=== PATIENT | male | born 1950 | race Caucasian/White ===

== ENCOUNTER → 2019-09-26 | Outpatient (CLI) | payer MEDICARE, OTHER ==
[~2019-09-26] MED LIST: CIPROFLOXACIN500 M1; FLAGYL500 MG; HYDROCODONE-AP1 EAC6 PO; IBUPROFEN 800800 M1 PO; MOBIC15 MG; PROTONIX40 M2; ROBAXIN 750 MG750 M1 PO; ZOCOR20 MG PO
== END ==
LOC: M.LAB 07:21
PROVIDERS: ATTEND Internal Medicine Gastroenterology
DX: Z01.818 Encounter for other preprocedural examination (principal); Z11.59 Encounter for screening for other viral diseases

== ENCOUNTER → 2019-10-02 | Outpatient (CLI) | payer MEDICARE, OTHER | LOC: M.RAD 09:51 | PROVIDERS: ATTEND Internal Medicine Gastroenterology | DX: Z01.812 Encounter for preprocedural laboratory examination (principal); Z20.828 Contact with and (suspected) exposure to other viral communicable diseases; Z86.010 Personal history of colon polyps ==

== ENCOUNTER 2021-02-16 14:24 | Emergency (ER) | payer MEDICARE, OTHER ==
[~2021-02-16] VITALS: Ht 185.4 cm; Wt 101.6 kg
[2021-02-16 17:04] LABS: MCH 26.9 pg (26.0-34.0); MPV 7.6 fl. (7.2-11.1); RBC 5.92 mil/uL (4.50-6.00)
[2021-02-16 17:05] LABS: HEMATOCRIT 47.9 % (42.0-52.0); MCHC 33.3 g/dL (28.0-37.0); MCV 80.9 fL (80.0-100.0); NUCLEATED RBCS 0 /100WBC; PLATELET COUNT* 207 thou/uL (150-400); WBC 11.6 thou/uL (4.0-11.0)
[2021-02-16 17:11] LABS: INFLUENZA A ANTIGEN Negative (Negative); INFLUENZA B ANTIGEN Negative (Negative)
[2021-02-16 17:11] LABS: CALCIUM 8.5 mg/dL (8.5-10.1); CREATININE 1.3 mg/dL (0.6-1.3); POTASSIUM 4.2 mmol/L (3.5-5.1)
[2021-02-16 17:16] LABS: ALBUMIN 3.3 g/dL (3.4-5.0); TOTAL BILIRUBIN 0.4 mg/dL (<0.1-1.0); TOTAL PROTEIN 7.1 g/dL (6.4-8.2)
[2021-02-16 17:42] LABS: ABSOLUTE LYMPHOCYTES 0.5 thou/uL (0.8-5.3); ABSOLUTE MONOCYTES 0.7 thou/uL (0.0-1.2); ABSOLUTE NEUTROPHILS 10.4 thou/uL (1.6-8.1); PLATELET ESTIMATE ADEQUATE
[2021-02-16] MEDS ORDERED: ZPAK PO (19:52)
[2021-02-16 20:00] VITALS: BP 137/68
--- NOTE | 2021-02-17 09:58 | EKG ---
[place] [address] ELECTROCARDIOGRAM REPORT Name: DOM PARK II Room: [facility]#: [id number] Admission: 02/16/21 Attend Phys: Discharge: 02/16/21 Date of : 50 Date of Service: 02/16/21 1431 Report #: [id number] THIS REPORT FOR: //name// [facility] ED Test Date: 2021-02-16 Test Time: 14:31:52 Pat Name: DOM PARK Department: Room: Gender: Finding Fastener: : 1950 Requested By: Yehuda Salguero Order Number: [id number] MD: Davonte Mak Measurements Intervals [place] Rate: 94 P: 56 NV: 119 QRS: 109 QRSD: 88 T: -30 QT: 338 QTc: 423 Interpretive Statements Sinus rhythm Borderline short NV interval Right axis deviation Abnormal T, consider ischemia, inferior leads Baseline wander in lead(s) III,aVF No previous ECG available for comparison Electronically Signed On 02-17-2021 9:58:22 PRE PRESS PROOFER by Davonte Mak [email or web address] <ELECTRONICALLY SIGNED> By: Davonte Mak MD, FAC 02/17/21 0958 1431 1431 Davonte Mak MD, [facility] /EPI
== END 2021-02-16 20:00 | disposition home or self-care (01) ==
LOC: M.ERS 14:24
PROVIDERS: Family Medicine; Physician Assistant
DX: R42 Dizziness and giddiness (principal); Z20.822 Contact with and (suspected) exposure to COVID-19; R53.1 Weakness; R53.83 Other fatigue; E78.5 Hyperlipidemia, unspecified; Z79.899 Other long term (current) drug therapy; Z88.6 Allergy status to analgesic agent